=== PATIENT | female | born 1985 | race Caucasian/White ===

== ENCOUNTER 2021-04-10 00:45 | Day surgery (SDC) | payer OTHER, SELFPAY ==
[2021-04-05 13:13] VITALS: BMI 24.0
--- NOTE | 2021-04-05 13:21 | PC.NURSE ---
Report to the Outpatient Waiting Room, entrance under the green pavilion located off [facility], at time 1230 on date 04/10/21. OR Time: 1430. - You and your visitor will be asked a series of questions to screen for COVID 19 for your protection. - A mask is required within the hospital. - Only one visitor is allowed at this time. Patient visitors will be guided where to wait when not with patient. Preoperative COVID Testing Requirements: No COVID Test needed if: (proof is required; if not received patient will have Rapid Test prior to entry) - Patient has received COVID Vaccine at least 14 days prior to procedure date or - Patient has positive COVID test result within last 90 days of surgery date. COVID Test needed if above criteria is not met If not COVID vaccinated a COVID test must be conducted within 72 hours of surgery and patient is asked to isolate self from time of testing until procedure. You will go to the [facility] for your COVID testing. The [facility] is located at the corner of [address] [facility]. You will only be called if COVID results are positive and your surgeon may reschedule your elective surgery date. Patients may have clear liquids (water, carbonated beverages, clear teas, apple juice) until 3 hours prior to surgery with a maximum of 20 ounces. - No food from midnight until time of surgery - Infants may have breast milk until 4 hours before surgery, infant formula 6 hours prior to surgery. - Children will be allowed to drink immediately following surgery. If applicable, please bring a bottle or sippy cup to assist with drinking. Juice, water, soda, and popsicles are readily available. For infants on formula, please bring formula the day of surgery. Pacifiers are allowed. Take the following medications with a SIP of water the morning of surgery: XANAX, BCP Medications to discontinue per physician: N/A Date to take last dose: N/A Please no make-up, nail japanese, hairspray, perfume, deodorant, or body powder the day of surgery. No jewelry (including any body piercings) or valuables the day of surgery, leave them at home. Please take a shower or bath the night before, or the morning of, surgery with an antibacterial soap. Wear comfortable, loose fitting clothing. Children are encouraged to wear pajamas. - Jewelry must be removed prior to entering the operating room. Rings and piercings that are not removed may be cut off. - The hospital will not accept responsibility for valuables. - Please leave all valuables, including medications, at home the day of surgery. If you are going home after surgery, a licensed truck driver rubbish collector must drive you home. - NO public transportation without another adult. - We recommend that an adult stay with you for 24 hours following discharge. - We also recommend that you do not drive, make important decision, drink alcoholic beverages, or take any drugs that were not prescribed by your health care provider for at least 24 hours after your discharge time. For Pediatric surgeries, we recommend two adults accompany the child home (only one inside the building at this time). Follow any additional instructions given to you from your surgeon. Telephone instructions given to DAIJA SNYDER and asked if any additional questions and then verbalized understanding. Patient advised to call surgeon office or pre surgery nurse liaison [phone] if any additional questions.
[2021-04-10] VITALS (9 sets, daily range): BP systolic 114–128; BP diastolic 71–85; PULSE 72–120; RESP 12–20; TEMP 36.2–37; O2SAT 96–100
--- NOTE | 2021-04-10 13:15 | WPDHPUPDATE1 ---
History and Physical Update Update Date/Time: 04/10/21 13:15 History and Physical has been reviewed, including an updated exam of the patient. There are NO changes in the patient's condition. Risks, benefits, and alternatives have been discussed and questions answered. Patient agrees to proceed with procedure.
--- NOTE | 2021-04-10 13:37 | P.PNAN_ITS ---
Anes - Initial Pre Proc Eval Procedure: Operation Date: 04/10/21 15:00 Proposed Procedures p Bilateral Breast Augmentation Mammoplasty - Jamil Garrison MD Date/Time: 04/10/21 13:37 Surgeon: Jamil Garrison MD Pre Op Diagnosis: Micromastia Patient Data Age: 36 Gender: F Height: 1.63 m Weight: 64 kg Last Vital Signs Temp 37.0 C 04/10/21 13:07 Pulse 92 04/10/21 13:07 Resp 16 04/10/21 13:07 BP 122/72 04/10/21 13:07 Pulse Ox 100 04/10/21 13:07 Allergies Allergy/AdvReac Type Severity Reaction Status Date / Time Penicillins Allergy Unknown Hives Verified 04/10/21 13:24 Home Medications Medication Instructions Recorded Confirmed Type alprazolam 1 mg tablet,extended 1 mg PO DAILY 02/20/21 04/10/21 History release 24 hr cetirizine 10 mg capsule 10 mg PO DAILY 02/20/21 04/10/21 History lubiprostone 24 mcg capsule 24 mcg PO DAILY 02/20/21 04/05/21 History norethindrone 1 mg-ethinyl 1 tablet PO DAILY 02/20/21 04/10/21 History estradiol 20 mcg (24)-iron 75 mg (4) tablet carisoprodol 350 mg tablet 350 mg PO TID PRN #21 tablet 03/27/21 04/05/21 Rx docusate sodium 100 mg capsule 100 mg PO DAILY #14 cap 03/27/21 04/05/21 Rx ondansetron HCl 4 mg tablet 4 mg PO Q8H #21 tablet 03/27/21 04/05/21 Rx oxycodone-acetaminophen 5 mg-325 1 tablet PO Q6H PRN #15 tablet 03/27/21 04/05/21 Rx mg tablet Patient hx anesthesia problems: none Family hx anesthesia problems: none Results Review: All pre-operative results and documents have been reviewed as part of the pre-operative evaluation. [facility] Surgical History Surgical History (Updated 04/10/21 @ 13:38 by Broderick Keller MD) H/O excision of ganglion cyst Social History Social History Smoking status: Never smoker Alcohol intake: current Drinks per week: 2 Substance use: never Substance use type: does not use Living arrangements: with friend(s) Spiritual care concerns: No Anes - Eval Final PreProcedure Day of Procedure 04/10/21 13:37 Patient weight: normal Heart: regular rate and rhythm Lungs: clear to auscultation Airway: Mallampati scale class 1 Neurological: alert and oriented Last oral intake: >/= 8 hours ASA classification: II Emergent: no Anesthetic plan: proceed Anesthesia type and monitoring: general LMA and standard monitoring Results Review: All pre-operative results and documents have been reviewed as part of the pre-operative evaluation. Informed Consent: The patient's anesthetic plan and its attendant risks and benefits were discussed with the patient/family/POA. Questions were solicited and answers provided to the satisfaction of the patient/family/POA.
--- NOTE | 2021-04-10 13:45 | W.PM.PROC2 ---
Procedure Note - Detailed Date of Procedure 04/10/21 Pre-op Diagnosis Micromastia Post-op Diagnosis same Procedure Performed Bilateral Breast Augmentation Surgeon Jamil Garrison MD Anesthesia general Findings Bilateral dual plane 1 breast augmentation Duy Reyes SoftTouch 375cc smooth silicone Right - REF# [id number] SN [id number] Left - REF# [id number] SN [id number] Description of Procedure She is here today for bilateral breast augmentation. Previously and again today the risks, benefits, alternatives were discussed in extensive detail. I wanted her to be very realistic about the risks involved as well as expectations. We discussed aftercare and what to monitor for. Made sure answered all of her questions to her satisfaction today and consent was obtained. Marked in the preoperative holding area with their verification. The patient was taken to the operating room placed supine on the operating table. Anesthesia was provided by anesthesiology. A surgical time-out was taken. We cleansed the skin and 1% lidocaine and 0.25% Marcaine with epinephrine was used anesthetize as a field block. She was prepped and draped in a standard sterile fashion. Tegaderm nipple Parmar were placed. A 15 blade used to make an incision along the inframammary fold. Dissection was continued at 45 degree angle until the chest wall as identified. I incised the pectoralis major along its inferior border and completely released the inferior border leaving the medial border intact. I created a subpectoral pocket in the appropriate dimensions based on our preoperative planning for the implant. I then copiously irrigated with saline solution and verified a strict hemostasis. Next the use a triple antibiotic and Betadine containing solution to irrigate the pocket. I washed my gloves with the triple antibiotic and Betadine solution. We washed the implant immediately upon opening it with this solution and only opened it when we needed it. I used implant funnel and no-touch technique. The implant was introduced into the pocket using the funnel. Having verified positioning of the implant this was closed using 2-0 Vicryl followed by 3-0 Monocryl in a running subcuticular 4-0 Monocryl followed by tissue glue. Fluffs and surgical bra were placed. Patient was awoke and taken to PACU without difficulty. All instrument sponge counts were correct at the end of the case. Estimated Blood Loss 20 Drains No Packing No Pathology none sent Complications No immediate complications Condition stable Disposition PACU
[2021-04-10] MEDS: LACTATED RINGERS 1,000 ML 30 ML IV CONT ×2 (13:52→15:02)
[2021-04-10] MEDS: SCOPOLAMINE 1.5 MG PATCH TRANSDERM (13:53)
[2021-04-10] MEDS: ceFAZolin 2 GM/D5W 50 ML 2 GM/50 ML BAG IVPB (14:00)
[2021-04-10] MEDS: TRANEXAMIC ACID 1,000MG/ISO100 1,000 MG/100 ML BAG 200 MG IVPB (14:09)
[2021-04-10] MEDS: BUPIVACAINE HCL 0.25% PF 30 ML VIAL INFILTRATE (14:34)
[2021-04-10] MEDS: LIDO 1%/EPINEPHRINE 1:100,000 50 ML VIAL 30 ML INFILTRATE (14:35)
[2021-04-10] MEDS: fentaNYL CITRATE INJ (*CRX) 100 MCG/2 ML VIAL 25 MCG IV PUSH ×8 (15:20→15:42)
[2021-04-10] MEDS: oxyCODONE HCL (*CRX) 5 MG TAB IR PO (16:15)
== END 2021-04-10 16:48 | disposition home or self-care (01) ==
PROVIDERS: PCP Internal Medicine; Visit Provider Surgery Plastic and Reconstructive Surgery
PROC: (CPT 19325; principal; 2021-04-10 15:00)
DX: Z41.1 Encounter for cosmetic surgery (principal); N64.82 Hypoplasia of breast
CPT/HCPCS: 19325; A9270; J0690; J1100; J1170; J1580; J2250; J2405; J2704; J3010; J7120